=== PATIENT | male | born 1960 | race Caucasian/White ===

== ENCOUNTER 2017-02-19 23:38 | Emergency (ER) | payer OTHER ==
[2017-02-20 03:06] VITALS: BP 124/75
== END 2017-02-20 03:06 | disposition home or self-care (01) ==
LOC: ED 23:38
DX: S01.01XA Laceration without foreign body of scalp, initial encounter (principal); E07.9 Disorder of thyroid, unspecified; Z79.899 Other long term (current) drug therapy; Z79.01 Long term (current) use of anticoagulants; W18.39XA Other fall on same level, initial encounter; Y93.89 Activity, other specified; Y99.8 Other external cause status; Y92.89 Other specified places as the place of occurrence of the external cause
CPT/HCPCS: J1885; J2001; Q0092

== ENCOUNTER 2017-02-28 16:24 | Emergency (ER) | payer OTHER ==
[2017-02-28 17:12] VITALS: BP 118/80
== END 2017-02-28 17:12 | disposition home or self-care (01) ==
LOC: ED 16:24
DX: S01.01XD Laceration without foreign body of scalp, subsequent encounter (principal); X58.XXXD Exposure to other specified factors, subsequent encounter